=== PATIENT | female | born 1960 | race Caucasian/White ===

== ENCOUNTER 2021-02-07 05:07 | Emergency (ER) | payer OTHER ==
[2021-02-07] MEDS ORDERED: METHYLPREDNISOLONE 125 MG INJ ONE (05:41)
[2021-02-07] MEDS ORDERED: DIPHENHYDRAMINE 50 MG/ML VIAL ONE (05:41)
[2021-02-07] MEDS ORDERED: NA CHLORIDE 0.9% 1,000 ML ONE (05:57)
[2021-02-07] MEDS ORDERED: ONDANSETRON 4 MG/2 ML VIAL ONE (06:01)
--- NOTE | 2021-02-07 06:27 | ER ---
Nurse's Notes [facility] Name: Avani George Age: 60 yrs Sex: Female : 1960 Arrival Date: 02/07/2021 Time: 05:08 Bed 13 Private MD: Diagnosis: Acute allergic reaction Presentation: 02/07 05:26 Chief complaint: Patient states: Reports she took Bactrim DS about 45 minutes ago ea states she started turning red and felt a lump in there throat, found it hard to breath. Coronavirus screen: At this time, the client does not indicate any symptoms associated with coronavirus-19. Ebola Screen: No symptoms or risks identified at this time. Onset: The symptoms/episode began/occurred 45 minute(s) ago. Anaphylaxis evaluation, the patient reports or I have noted the following symptoms which indicate a significant risk of anaphylaxis: lump in the throat which may suggest laryngeal edema. Initial Sepsis Screen: Does the patient meet any 2 criteria? No. Patient's initial sepsis screen is negative. Does the patient have a suspected source of infection? No. Patient's initial sepsis screen is negative. Risk Assessment: Do you want to hurt yourself or someone else? Patient reports no desire to harm self or others. Onset of symptoms was February 07, 2021. 05:26 Method Of Arrival: Ambulatory ea 05:26 Acuity: ROC 2 ea Triage Assessment: 05:30 General: Appears uncomfortable, Behavior is appropriate for age, restless. Pain: Denies ea pain. Neuro: Level of Consciousness is awake, alert, obeys commands, Oriented to person, place, time. Respiratory: Airway is patent Respiratory effort is even, Respiratory pattern is tachypnea. Derm: Rash noted that is red. Historical: - Allergies: 05:30 Morphine; ea - Home Meds: 05:30 gabapentin Oral [Active]; Mimvey Oral [Active]; [place] Oral [Active]; ea - Immunization history:: Adult Immunizations unknown. - Social history:: Smoking status: unknown. Screenin:24 Abuse screen: Denies threats or abuse. Nutritional screening: No deficits noted. ea Tuberculosis screening: No symptoms or risk factors identified. Fall Risk IV access (20 points). Assessment: 05:52 Reassessment: Patient appears in no apparent distress at this time. No changes from ms4 previously documented assessment. Patient and/or family updated on plan of care and expected duration. Pain level reassessed. Patient is alert, oriented x 3, equal unlabored respirations, skin warm/dry/pink. General: Appears in no apparent distress. Behavior is calm, cooperative, appropriate for age. Respiratory: Airway is patent Trachea midline Respiratory effort is even, unlabored, Respiratory pattern is regular, Breath sounds are clear bilaterally. 06:49 Reassessment: Patient and/or family updated on plan of care and expected duration. Pain ea level reassessed. Patient is alert, oriented x 3, equal unlabored respirations, skin warm/dry/pink. Discharge instruction given to patient verbalized the understanding of instruction. Pt left ED ambulatory tolerating well. Vital Signs: 05:26 BP 177 / 127; Pulse 125; Resp 24; Temp 98.8; Pulse Ox 95% ; Weight 80.74 kg; Height 5 ea ft. 1 in. (154.94 cm); 05:53 BP 170 / 91; Pulse 98; Resp 18; Pulse Ox 96% on R/A; ms4 06:45 BP 138 / 68; Pulse 80; Resp 18; Pulse Ox 99% ; ea 05:26 Body Mass Index 33.63 (80.74 kg, 154.94 cm) ea ED Course: 05:08 Patient arrived in ED. wm 05:25 Inserted saline lock: 20 gauge in right antecubital area, using aseptic technique. ea Blood collected. 05:25 Patient has correct armband on for positive identification. Bed in low position. Call ea light in reach. environmental monitoring specialist on. Pulse ox on. NIBP on. 05:25 Arm band placed on right wrist. Patient placed in an exam room, on a stretcher, on ea pulse oximetry. 05:29 Triage completed. ea 05:42 Calvin Hua MD is Attending Physician. pkl 06:50 No provider procedures requiring assistance completed. IV discontinued, intact, ea bleeding controlled, No redness/swelling at site. Pressure dressing applied. Administered Medications: 05:29 Drug: Benadryl (diphenhydrAMINE) 25 mg Route: IVP; Site: right antecubital; ea 06:52 Follow up: Response: No adverse reaction ea 05:29 Drug: SOLU-Medrol (methylPrednisoLONE) 125 mg Route: IVP; Site: right antecubital; ea 06:53 Follow up: Response: No adverse reaction ea 05:36 Drug: NS 0.9% 1000 ml Route: IV; Rate: 1 bolus; Site: right antecubital; ea 06:53 Follow up: Response: No adverse reaction; IV Status: Completed infusion; IV Intake: ea 1000ml 05:43 Drug: Zofran (Ondansetron) 4 mg Route: IVP; Site: left antecubital; wr 06:53 Follow up: Response: No adverse reaction ea Intake: 06:53 IV: 1000ml; Total: 1000ml. ea Outcome: 06:26 Discharge ordered by . mejia 06:50 Discharged to home ambulatory. ea 06:50 Condition: stable 06:50 Discharge instructions given to patient, Instructed on discharge instructions, follow up and referral plans. medication usage, Demonstrated understanding of instructions, follow-up care, medications, Prescriptions given X 1. 06:52 Patient left the ED. ea Signatures: Calvin Hua MD MD pkl Antunez, Elena RN RN Britney Heath Mikaela, RN RN ms4 Cirilo Reyes
--- NOTE | 2021-02-07 06:27 | EDPHYS ---
Physician Documentation [facility] Name: Avani George Age: 60 yrs Sex: Female : 1960 Arrival Date: 02/07/2021 Time: 05:08 Bed 13 Private MD: ED Physician Calvin Hua HPI: 02/07 05:51 This 60 yrs old Female presents to ER via Ambulatory with complaints of pkl Allergic Reaction - THROAT SWELLILNG. 05:51 The patient presents with difficulty swallowing, itching, rash, shortness of breath. pkl Onset: The symptoms/episode began/occurred just prior to arrival, 1 hour(s) ago. Patient took Bactrim DS about 45 mins prior to onset of symptoms. Historical: - Allergies: 05:30 Morphine; ea - Home Meds: 05:30 gabapentin Oral [Active]; Mimvey Oral [Active]; [place] Oral [Active]; ea - Immunization history:: Adult Immunizations unknown. - Social history:: Smoking status: unknown. ROS: 05:54 Eyes: Negative for injury, pain, redness, and discharge, ENT: Negative for injury, pkl pain, and discharge, Neck: Negative for injury, pain, and swelling, Cardiovascular: Negative for chest pain, palpitations, and edema. 05:54 Respiratory: Positive for shortness of breath, at rest. 05:54 Abdomen/GI: Negative for abdominal pain, nausea, vomiting, and diarrhea. 05:54 Back: Negative for acute changes. 05:54 : Negative for urinary symptoms. 05:54 MS/extremity: Negative for acute changes. 05:54 Skin: Positive for rash, diffusely. 05:54 Neuro: Negative for altered mental status, loss of consciousness. Exam: 05:54 Head/Face: Normocephalic, atraumatic. Eyes: Pupils equal round and reactive to light, pkl extra-ocular motions intact. Lids and lashes normal. Conjunctiva and sclera are non-icteric and not injected. Cornea within normal limits. Periorbital areas with no swelling, redness, or edema. ENT: Nares patent. No nasal discharge, no septal abnormalities noted. Tympanic membranes are normal and external auditory canals are clear. Oropharynx with no redness, swelling, or masses, exudates, or evidence of obstruction, uvula midline. Mucous membranes moist. Neck: Trachea midline, no thyromegaly or masses palpated, and no cervical lymphadenopathy. Supple, full range of motion without nuchal rigidity, or vertebral point tenderness. No Meningismus. Chest/axilla: Normal chest wall appearance and motion. Nontender with no deformity. No lesions are appreciated. Cardiovascular: Regular rate and rhythm with a normal S1 and S2. No gallops, murmurs, or rubs. Normal PMI, no JVD. No pulse deficits. 05:54 Respiratory: mild respiratory distress is noted, Respirations: labored breathing, is not present, Breath sounds: are clear throughout, no bronchial sounds. 05:54 Abdomen/GI: Bowel sounds: normal, Palpation: abdomen is soft and non-tender, in all quadrants. 05:54 Back: Exam negative for acute changes. 05:54 : Exam negative for acute changes. 05:54 Musculoskeletal/extremity: Exam is negative for acute changes. 05:54 Skin: Exam negative for rash. 05:54 Neuro: Orientation: is normal, Mentation: is normal, Cranial nerves: grossly normal, Motor: is normal. Vital Signs: 05:26 BP 177 / 127; Pulse 125; Resp 24; Temp 98.8; Pulse Ox 95% ; Weight 80.74 kg; Height 5 ea ft. 1 in. (154.94 cm); 05:53 BP 170 / 91; Pulse 98; Resp 18; Pulse Ox 96% on R/A; ms4 06:45 BP 138 / 68; Pulse 80; Resp 18; Pulse Ox 99% ; ea 05:26 Body Mass Index 33.63 (80.74 kg, 154.94 cm) ea MDM: 05:42 Patient medically screened. pkl 06:25 Data reviewed: vital signs, nurses notes. ED course: Patient feeling better. Not in any pkl distress. Administered Medications: 05:29 Drug: Benadryl (diphenhydrAMINE) 25 mg Route: IVP; Site: right antecubital; ea 06:52 Follow up: Response: No adverse reaction ea 05:29 Drug: SOLU-Medrol (methylPrednisoLONE) 125 mg Route: IVP; Site: right antecubital; ea 06:53 Follow up: Response: No adverse reaction ea 05:36 Drug: NS 0.9% 1000 ml Route: IV; Rate: 1 bolus; Site: right antecubital; ea 06:53 Follow up: Response: No adverse reaction; IV Status: Completed infusion; IV Intake: ea 1000ml 05:43 Drug: Zofran (Ondansetron) 4 mg Route: IVP; Site: left antecubital; wr 06:53 Follow up: Response: No adverse reaction ea Disposition Summary: 02/07/21 06:26 Discharge Ordered Location: Home pkl Problem: new pkl Symptoms: have improved pkl Condition: Stable pkl Diagnosis - Acute allergic reaction pkl Followup: pkl - With: Private Physician - When: 2 - 3 days - Reason: Re-evaluation by your physician Discharge Instructions: - Discharge Summary Sheet pkl Forms: - Medication Reconciliation Form pkl - Thank You Letter pkl - Antibiotic Education pkl - Prescription Opioid Use pkl Prescriptions: - Prednisone 20 mg Oral Tablet - take 1 tablet by ORAL route once daily for 5 days; 5 tablet; Refills: 0, pkl Product Selection Permitted Signatures: Calvin Hua MD MD pkl Abeba Olsen, RN Cirilo Vargas ea
[2021-02-07 07:00] VITALS: TEMP 98.8
[2021-02-07 07:02] VITALS: BP 138/68; O2SAT 99
== END 2021-02-07 06:52 | disposition home or self-care (01) ==
LOC: ER 05:07
DX: R21 Rash and other nonspecific skin eruption (principal); R06.02 Shortness of breath; Z88.5 Allergy status to narcotic agent
CPT/HCPCS: 99284; J1200; J7030; J2930; J2405